=== PATIENT | female | born 1980 | race African-American/Black ===

== ENCOUNTER 2017-10-06 14:23 | Emergency (ER) | payer SELFPAY ==
[~2017-10-06] VITALS: Ht 154.9 cm; Wt 62.7 kg
[2017-10-06 14:43] VITALS: Ht 154.9 cm; Wt 62.7 kg
[2017-10-06 18:00] VITALS: BP 135/95
== END 2017-10-06 18:00 | disposition home or self-care (01) ==
LOC: ED 14:23
DX: S16.1XXA Strain of muscle, fascia and tendon at neck level, initial encounter (principal); S29.012A Strain of muscle and tendon of back wall of thorax, initial encounter; F17.210 Nicotine dependence, cigarettes, uncomplicated; V49.9XXA Car occupant (driver) (passenger) injured in unspecified traffic accident, initial encounter; Y93.89 Activity, other specified; Y92.488 Other paved roadways as the place of occurrence of the external cause; Y99.8 Other external cause status
CPT/HCPCS: J1885